=== PATIENT | female | born 1955 | race Caucasian/White ===

== ENCOUNTER → 2023-12-14 06:20 | Day surgery (SDC) | payer MEDICARE, BC, SELFPAY | LOC: GI 06:20 | PROVIDERS: ATTENDING PHYSICIAN Surgery | DX: R19.5 Other fecal abnormalities (principal); Z12.11 Encounter for screening for malignant neoplasm of colon; D12.3 Benign neoplasm of transverse colon; K63.5 Polyp of colon | CPT/HCPCS: 45385; 45381; 88305 ==

== ENCOUNTER → 2024-06-05 09:27 | Outpatient (REF) | payer MEDICARE, BC, SELFPAY ==
[2024-06-05 10:20] LABS: % Basophils 0.8 % (0-2); % Eosinophils 1.7 % (0-6); % Immature Granulocytes 0.2 % (0-0.5); % Monocytes 7.9 % (1.7-9.3); % Neutrophils 53.4 % (42.2-75.2); Absolute Basophils 0.1 10^3/uL (0-0.2); Absolute Eosinophils 0.1 10^3/uL (0-0.7); Absolute Lymphocytes 2.3 10^3/uL (1.2-3.4); Absolute Monocytes 0.5 10^3/uL (0.1-0.6); Absolute Neutrophils 3.4 10^3/uL (1.4-6.5); Hematocrit 43.4 % (37.0-47.0); Hemoglobin 14.8 g/dL (12.0-16.0); Mean Corp Hgb Conc. 34.1 g/dL (33.0-37.0); Mean Corpuscular Hgb 30.9 pg (27.0-31.0); Mean Corpuscular Volume 90.6 fL (81.0-99.0); Mean Platelet Volume 10.7 fL (7.4-10.4); Nucleated Red Blood Cells % 0 %; Platelet Count 214 10^3/uL (130-400); Red Blood Cell Count 4.79 10^6/uL (4.20-5.40); Red Cell Dist. Width 12.5 % (11.5-14.5); White Blood Cell Count 6.3 10^3/uL (4.8-10.8)
[2024-06-05 11:13] LABS: Blood Urea Nitrogen 15 mg/dl (7-17); Calcium 9.8 mg/dl (8.4-10.2); Carbon Dioxide 25 mmol/L (22-30); Chloride 103 mmol/L (98-107); Glucose 94 mg/dl (70-99); Potassium 4.5 mmol/L (3.5-5.1); Sodium 139 mmol/L (135-145); eGFR 55.42
== END ==
LOC: SDSPAT 09:27
PROVIDERS: ATTENDING PHYSICIAN Orthopaedic Surgery Hand Surgery; FAMILY PHYSICIAN Physician Assistant
DX: Z01.818 Encounter for other preprocedural examination (principal)
CPT/HCPCS: 36415; 80048; 85025; 93005

== ENCOUNTER 2024-07-05 06:18 | Day surgery (SDC) | payer MEDICARE, BC, SELFPAY ==
[2024-06-05 09:59] VITALS: BMI 30.8
--- NOTE | 2024-06-27 10:29 | PTCARENOTE ---
Patients 06/05/24 ECG abn- non specific T abnormality- scanned ECG from 07/2019 w/ non specific T as well
--- NOTE | 2024-06-28 10:03 | PTCARENOTE ---
Patients 06/05 GFR 55.42, creat 1.1- Sima @ Dr. Mancini office notified
[2024-07-05] VITALS (8 sets, daily range): BP systolic 108–158; BP diastolic 52–84; BMI 30.8
[2024-07-05] MEDS: TYLENOL 1000 MG PO (11:16)
[2024-07-05] MEDS: CELEBREX 200 MG PO (11:16)
[2024-07-05] MEDS: NORMOSOL-R/PLASMALYTE-A 1000 IV (11:17)
== END 2024-07-05 14:53 | disposition home or self-care (01) ==
LOC: SDS 06:18
PROVIDERS: ATTENDING PHYSICIAN Orthopaedic Surgery Hand Surgery
DX: M75.111 Incomplete rotator cuff tear or rupture of right shoulder, not specified as traumatic (principal); S46.211A Strain of muscle, fascia and tendon of other parts of biceps, right arm, initial encounter; X58.XXXA Exposure to other specified factors, initial encounter; M75.41 Impingement syndrome of right shoulder; M65.811 Other synovitis and tenosynovitis, right shoulder
CPT/HCPCS: 29827; 29826; 29823

== ENCOUNTER → 2024-11-08 11:12 | Outpatient (REF) | payer MEDICARE, BC, SELFPAY | LOC: HWWDC 11:12 | PROVIDERS: ATTENDING PHYSICIAN Physician Assistant | DX: Z12.31 Encounter for screening mammogram for malignant neoplasm of breast (principal) | CPT/HCPCS: 77063; 77067 ==